=== PATIENT | male | born 1980 | race Caucasian/White ===

== ENCOUNTER → 2018-09-17 | Outpatient (CLI) | payer MEDICAID, SELFPAY | LOC: M OUTALCOH 10:03 | PROVIDERS: ATTEND Psychiatry & Neurology Psychiatry | DX: F15.20 Other stimulant dependence, uncomplicated (principal) ==

== ENCOUNTER 2018-09-28 08:45 | Outpatient (RCR) | payer MEDICAID | END 2018-09-30 | LOC: M OUTALCOH 08:45 | PROVIDERS: ATTEND Psychiatry & Neurology Psychiatry | DX: F15.20 Other stimulant dependence, uncomplicated (principal); Z72.0 Tobacco use ==

== ENCOUNTER → 2018-10-31 | Outpatient (RCR) | payer OTHER | LOC: M OUTALCOH 10-02 10:44 | PROVIDERS: ATTEND Psychiatry & Neurology Psychiatry | DX: F15.20 Other stimulant dependence, uncomplicated (principal); Z72.0 Tobacco use ==

== ENCOUNTER 2018-11-28 15:00 | Outpatient (RCR) | payer MEDICAID | END 2018-12-01 | LOC: M OUTALCOH 15:00 | PROVIDERS: ATTEND Psychiatry & Neurology Psychiatry | DX: F15.20 Other stimulant dependence, uncomplicated (principal); Z72.0 Tobacco use ==

== ENCOUNTER → 2018-12-31 | Outpatient (RCR) | payer MEDICAID, OTHER | LOC: M OUTALCOH 12-10 13:18 | PROVIDERS: ATTEND Psychiatry & Neurology Psychiatry | DX: F15.20 Other stimulant dependence, uncomplicated (principal); Z72.0 Tobacco use ==

== ENCOUNTER 2019-01-25 14:00 | Outpatient (RCR) | payer OTHER | END 2019-01-31 | LOC: M OUTALCOH 14:00 | PROVIDERS: ATTEND Psychiatry & Neurology Psychiatry | DX: F15.20 Other stimulant dependence, uncomplicated (principal); Z72.0 Tobacco use ==

== ENCOUNTER 2019-02-01 12:59 | Outpatient (RCR) | payer OTHER | END 2019-03-02 | LOC: M OUTALCOH 12:59 | PROVIDERS: ATTEND Psychiatry & Neurology Psychiatry | DX: F15.20 Other stimulant dependence, uncomplicated (principal); Z72.0 Tobacco use ==